=== PATIENT | male | born 1980 | race African-American/Black ===

== ENCOUNTER 2019-11-26 12:32 | Outpatient (CLI) | payer BC ==
--- NOTE | 2019-11-26 16:46 | RAD ---
LEFT WRIST THRE VIEWS: 11/26/19 No fracture or carpal abnormality was seen. No obvious cause for pain was found. IMPRESSION: No significant findings. POS: HOME
== END 2019-11-26 12:33 | disposition home or self-care (01) ==
LOC: BURRAD 12:32
PROVIDERS: ATTEND Clinical Nurse Specialist Medical-Surgical
DX: M25.532 Pain in left wrist (principal)

== ENCOUNTER 2020-09-29 21:40 | Emergency (ER) | payer BC ==
[2020-09-29] MEDS ORDERED: Insulin Regular 300 UNITS/3 ML VIAL ONE (22:23)
[2020-09-29 22:31] LABS: #Basophils 0.2 thou/uL (0.0-0.2); #Eosinphils 0.1 thou/uL (0.0-0.7); #Lymphocytes 3.4 thou/uL (1.20-3.40); %Basophils 1.6 % (0.0-1.0); %Eosinophils 0.5 % (0.0-10.0); %Lymphocytes 25.2 % (21.0-51.0); %Monocytes 7.4 % (0.0-10.0); %Neutrophils 65.4 % (42.0-75.0); Hemoglobin 15.9 g/dL (14.0-18.0); Mean Corpuscular HGB CONC 32.5 g/dL (32.0-36.0); Mean Corpuscular Hemoglobin 27.4 pg (27.0-31.0); Mean Corpuscular Volume 84.2 fL (78.0-98.0); Mean Platelet Volume 9.4 fL (7.4-10.4); Platelet Count 236 thou/uL (130-400); RBC Distribution Width 12.9 % (11.5-14.5); White Blood Cell (WBC) Count 13.7 thou/uL (4.8-10.8)
[2020-09-29 22:36] LABS: Bilirubin Negative (Negative); Blood, Urine Moderate (Negative); Clarity Clear (Clear); Glucose, Urine (Dipstick) 500 mg/dL (Negative); Ketone, Urine 15 mg/dL (Negative); Leukocyte Negative (Negative); Nitrite Negative (Negative); Protein, Urine (Dipstick) 100 mg/dL (Neg-Trace); Urobilinogen 0.2 mg/dL (Less than 2); pH, Urine 5.5 (5.0-9.0)
[2020-09-29 22:44] LABS: ALT (SGPT) 53 U/L (8-55); AST (SGOT) 39 U/L (5-34); Albumin 4.7 g/dL (3.5-5.0); Alkaline Phosphatase 103 U/L (40-110); Anion Gap 19 mmol/L (10-20); BUN (Urea Nitrogen) 18 mg/dL (8.9-20.6); Bilirubin, Total 0.5 mg/dL (0.2-1.2); Calc. Creatinine Clearance 0 mL/min (70-130); Calcium 9.8 mg/dL (7.8-10.44); Carbon Dioxide 24 mmol/L (22-29); Chloride 99 mmol/L (98-107); Globulin 3.8 g/dL (2.4-3.5); Glucose 451 mg/dL (70-105); Potassium 3.9 mmol/L (3.5-5.1); Protein, Total 8.5 g/dL (6.0-8.3); Sodium 138 mmol/L (136-145)
[2020-09-29 23:06] LABS: WBC/HPF 0-3 HPF (0-3)
[2020-09-29 23:08] LABS: Squamous Epithelial 0-3 HPF (0-3)
[2020-09-29 23:09] LABS: Bacteria/HPF Rare-Few HPF (None Seen)
--- NOTE | 2020-09-30 07:59 | RAD ---
CHEST 2 VIEWS: Date: 09/29/2020 Comparison made with the 08/20/2015 study. The heart remains normal in size and the lungs are clear. There is no definite infiltrate or effusion . There is no vascular congestion or edema. The mediastinum appears normal. IMPRESSION: No acute findings. POS: HOME
== END 2020-09-30 00:50 | disposition home or self-care (01) ==
LOC: BURERS 21:40
DX: E11.9 Type 2 diabetes mellitus without complications (principal); F17.210 Nicotine dependence, cigarettes, uncomplicated
CPT/HCPCS: 36416; 71046; 80053; 81003; 81015; 84484; 85025; 93005; 94760; 96374; 96376; J1815

== ENCOUNTER 2024-08-15 05:43 | Emergency (ER) | payer BC | END 2024-08-15 07:05 | disposition home or self-care (01) | LOC: BURERS 05:43 | DX: J02.9 Acute pharyngitis, unspecified (principal); E11.9 Type 2 diabetes mellitus without complications | CPT/HCPCS: 87081; 87430; 99283 ==